=== PATIENT | female | born 1955 | race Caucasian/White ===

== ENCOUNTER 2021-11-30 16:16 | Inpatient (IN) | payer MEDICARE ==
[~2021-11-30] VITALS: Ht 160 cm; Wt 98.0 kg
[2021-11-30 16:20] VITALS: BP 124/66
[2021-11-30 16:46] LABS: BASO # 0.1 10*3/uL (0.0-0.1); BASO % 0.4 % (0.0-1.0); EOS % 0.2 % (1.0-4.0); HEMATOCRIT 44.5 % (37.0-47.0); LYMPH # 0.9 10*3/uL (1.3-4.4); MEAN CELL VOLUME 90.3 fl (81.0-99.0); MEAN CORPUSCULAR HGB 31.8 pg (27.0-31.0); MEAN CORPUSCULAR HGB CONC 35.3 g/dl (33.0-37.0); MEAN PLATELET VOLUME 9.7 fl (9.6-12.3); MONO # 1.2 10*3/uL (0.1-1.0); MONO % 8.2 % (3.0-9.0); NEUT % 84.6 % (47.0-73.0); PLATELET COUNT AUTOMATED 127 10*3/uL (130-400); RED BLOOD COUNT 4.93 10*6/uL (4.10-5.10); RED CELL DISTRI WIDTH 15.7 % (0-14.5); WHITE BLOOD COUNT 14.2 10*3/uL (4.8-10.8)
[2021-11-30 17:01] LABS: ACT PARTIAL THROMBO TIME 32.6 SECONDS (20.0-32.1); ALKALINE PHOSPHATASE 757 U/L (45-117); BUN 13 mg/dl (7-24); CHLORIDE 88 mmol/L (98-107); CREATININE 0.56 mg/dL (0.55-1.02); INTERNATIONAL NORM RATIO 1.3 (2.0-3.5); SGOT/AST 303 IU/L (3-35); SGPT/ALT 168 U/L (12-78); SODIUM 123 mmol/L (136-145); TOTAL PROTEIN 6.6 gm/dL (6.4-8.2)
[2021-11-30 17:29] LABS: BILIRUBIN 3+ (Negative); BLOOD Negative (Negative); CLARITY Cloudy (Clear); COLOR Dark Yellow (Yellow); GLUCOSE Negative (Negative); KETONE Trace (Negative); LEUKO ESTERASE 1+ (Negative); NITRITE Positive (Negative); PH 5.5 (4.5-8.0); SPECIFIC GRAVITY 1.025 (1.001-1.030)
[2021-11-30 17:45] LABS: RBC 0-2 rbc/hpf (0-2)
[2021-11-30 17:46] LABS: BACTERIA 3+; EPITHELIAL CELLS TNTC
[2021-11-30 18:04] VITALS: BP 127/63
[2021-11-30 19:00] VITALS: BP 127/49
[2021-11-30 19:30] VITALS: BP 143/80
[2021-11-30 22:36] VITALS: BP 126/68
[2021-12-01] VITALS: BP 108/62
[2021-12-01] MEDS ORDERED: METFORMIN HYDR750 MG PO (01:00)
[2021-12-01] MEDS ORDERED: ATORVASTATIN CA40 M1 PO (01:00)
[2021-12-01 06:06] LABS: CHLORIDE 93 mmol/L (98-107); POTASSIUM 3.8 mmol/L (3.5-5.1); SODIUM 128 mmol/L (136-145)
[2021-12-01 06:12] LABS: BASO % 0.3 % (0.0-1.0); EOS % 0.3 % (1.0-4.0); LYMPH # 0.8 10*3/uL (1.3-4.4); LYMPH % 7.1 % (27.0-41.0); MEAN CELL VOLUME 91.5 fl (81.0-99.0); MEAN PLATELET VOLUME 10.6 fl (9.6-12.3); MONO # 0.9 10*3/uL (0.1-1.0); MONO % 8.3 % (3.0-9.0); NEUT # 9.5 10*3/uL (2.3-7.9); NEUT % 83.4 % (47.0-73.0); PLATELET COUNT AUTOMATED 117 10*3/uL (130-400); RED BLOOD COUNT 4.59 10*6/uL (4.10-5.10); RED CELL DISTRI WIDTH 16.4 % (0-14.5); WHITE BLOOD COUNT 11.4 10*3/uL (4.8-10.8)
[2021-12-01 06:24] LABS: ALKALINE PHOSPHATASE 702 U/L (45-117); BUN 13 mg/dl (7-24); CHOLESTEROL 182 mg/dL (<200); CREATININE 0.55 mg/dL (0.55-1.02); LDL CHOLESTEROL 148 mg/dL (9-159); SGOT/AST 279 IU/L (3-35); SGPT/ALT 148 U/L (12-78); TOTAL PROTEIN 5.9 gm/dL (6.4-8.2); TRIGLYCERIDES 131 mg/dl (<150)
[2021-12-01 07:32] VITALS: BP 147/71
[2021-12-01 09:57] LABS: VITAMIN D, 25-HYDROXY 17.3 ng/mL (30-100)
[2021-12-01 12:00] VITALS: BP 142/64
[2021-12-01 16:00] VITALS: BP 137/72
[2021-12-01 20:00] VITALS: BP 119/62
[2021-12-02] VITALS: BP 115/67
[2021-12-02 04:00] VITALS: BP 139/60
[2021-12-02 05:30] LABS: ALKALINE PHOSPHATASE 671 U/L (45-117); BUN 12 mg/dl (7-24); CHLORIDE 98 mmol/L (98-107); CREATININE 0.47 mg/dL (0.55-1.02); POTASSIUM 4.2 mmol/L (3.5-5.1); SGOT/AST 289 IU/L (3-35); SGPT/ALT 155 U/L (12-78); SODIUM 132 mmol/L (136-145)
[2021-12-02 06:11] LABS: BASO % 0.2 % (0.0-1.0); EOS % 0.3 % (1.0-4.0); HEMATOCRIT 41.6 % (37.0-47.0); LYMPH # 1.3 10*3/uL (1.3-4.4); LYMPH % 10.1 % (27.0-41.0); MEAN CELL VOLUME 92.4 fl (81.0-99.0); MEAN CORPUSCULAR HGB 32.4 pg (27.0-31.0); MEAN CORPUSCULAR HGB CONC 35.1 g/dl (33.0-37.0); MEAN PLATELET VOLUME 10.8 fl (9.6-12.3); MONO # 1.2 10*3/uL (0.1-1.0); MONO % 9.5 % (3.0-9.0); NEUT # 9.8 10*3/uL (2.3-7.9); NEUT % 79.3 % (47.0-73.0); PLATELET COUNT AUTOMATED 112 10*3/uL (130-400); WHITE BLOOD COUNT 12.3 10*3/uL (4.8-10.8)
[2021-12-02 08:00] VITALS: BP 125/59
[2021-12-02 16:00] VITALS: BP 134/68
[2021-12-02 20:00] VITALS: BP 115/59
[2021-12-03] VITALS: BP 123/53
[2021-12-03 04:00] VITALS: BP 119/47
[2021-12-03 05:16] LABS: BUN 13 mg/dl (7-24); CHLORIDE 97 mmol/L (98-107); POTASSIUM 4.4 mmol/L (3.5-5.1); SGOT/AST 294 IU/L (3-35); SGPT/ALT 154 U/L (12-78); SODIUM 131 mmol/L (136-145)
[2021-12-03 05:19] LABS: ALKALINE PHOSPHATASE 656 U/L (45-117); CREATININE 0.49 mg/dL (0.55-1.02); TOTAL PROTEIN 5.9 gm/dL (6.4-8.2)
[2021-12-03 05:27] LABS: THYROID STIM HORMONE (HS) 0.664 uIU/ml (0.358-4.75)
[2021-12-03 06:29] LABS: BASO % 0.3 % (0.0-1.0); EOS % 0.3 % (1.0-4.0); HEMATOCRIT 40.5 % (37.0-47.0); LYMPH % 8.7 % (27.0-41.0); MEAN CELL VOLUME 92.3 fl (81.0-99.0); MEAN CORPUSCULAR HGB 32.1 pg (27.0-31.0); MEAN CORPUSCULAR HGB CONC 34.8 g/dl (33.0-37.0); MEAN PLATELET VOLUME 10.8 fl (9.6-12.3); MONO # 1.2 10*3/uL (0.1-1.0); NEUT # 9.3 10*3/uL (2.3-7.9); NEUT % 79.9 % (47.0-73.0); PLATELET COUNT AUTOMATED 98 10*3/uL (130-400); RED BLOOD COUNT 4.39 10*6/uL (4.10-5.10); RED CELL DISTRI WIDTH 17.4 % (0-14.5); WHITE BLOOD COUNT 11.6 10*3/uL (4.8-10.8)
[2021-12-03 08:00] VITALS: BP 128/63
[2021-12-03 12:00] VITALS: BP 100/60
[2021-12-03 16:00] VITALS: BP 118/54
[2021-12-03 19:54] LABS: BUN 13 mg/dl (7-24); CHLORIDE 99 mmol/L (98-107); CREATININE 0.65 mg/dL (0.55-1.02); POTASSIUM 5.3 mmol/L (3.5-5.1); SODIUM 132 mmol/L (136-145)
[2021-12-03 20:00] VITALS: BP 129/68
[2021-12-04] VITALS: BP 136/80
[2021-12-04 06:12] LABS: ALKALINE PHOSPHATASE 736 U/L (45-117); BUN 16 mg/dl (7-24); CHLORIDE 97 mmol/L (98-107); CREATININE 0.69 mg/dL (0.55-1.02); POTASSIUM 5.3 mmol/L (3.5-5.1); SGOT/AST 325 IU/L (3-35); SGPT/ALT 166 U/L (12-78); SODIUM 130 mmol/L (136-145); TOTAL PROTEIN 6.2 gm/dL (6.4-8.2)
[2021-12-04 06:14] LABS: BASO % 0.3 % (0.0-1.0); EOS # 0.1 10*3/uL (0.0-0.4); EOS % 0.4 % (1.0-4.0); HEMATOCRIT 42.7 % (37.0-47.0); LYMPH # 1.1 10*3/uL (1.3-4.4); LYMPH % 7.8 % (27.0-41.0); MEAN CELL VOLUME 92.2 fl (81.0-99.0); MEAN CORPUSCULAR HGB CONC 34.7 g/dl (33.0-37.0); MEAN PLATELET VOLUME 10.8 fl (9.6-12.3); MONO # 1.4 10*3/uL (0.1-1.0); MONO % 9.8 % (3.0-9.0); NEUT # 11.5 10*3/uL (2.3-7.9); NEUT % 80.6 % (47.0-73.0); PLATELET COUNT AUTOMATED 88 10*3/uL (130-400); RED BLOOD COUNT 4.63 10*6/uL (4.10-5.10); RED CELL DISTRI WIDTH 18.5 % (0-14.5); WHITE BLOOD COUNT 14.2 10*3/uL (4.8-10.8)
[2021-12-04 08:00] VITALS: BP 132/78
[2021-12-04 12:00] VITALS: BP 141/72
[2021-12-04 12:01] LABS: INTERNATIONAL NORM RATIO 1.8 (2.0-3.5)
[2021-12-04 16:00] VITALS: BP 128/84
[2021-12-04 20:00] VITALS: BP 130/75
[2021-12-05] VITALS (12 sets, daily range): BP systolic 119–140; BP diastolic 60–96
[2021-12-05 06:17] LABS: INTERNATIONAL NORM RATIO 1.8 (2.0-3.5)
[2021-12-05 06:20] LABS: BASO % 0.1 % (0.0-1.0); EOS % 0.3 % (1.0-4.0); HEMATOCRIT 43.1 % (37.0-47.0); LYMPH % 7.2 % (27.0-41.0); MEAN CELL VOLUME 92.5 fl (81.0-99.0); MEAN CORPUSCULAR HGB 31.8 pg (27.0-31.0); MEAN CORPUSCULAR HGB CONC 34.3 g/dl (33.0-37.0); MEAN PLATELET VOLUME 10.5 fl (9.6-12.3); MONO # 1.3 10*3/uL (0.1-1.0); MONO % 8.8 % (3.0-9.0); NEUT # 11.7 10*3/uL (2.3-7.9); NEUT % 82.7 % (47.0-73.0); PLATELET COUNT AUTOMATED 84 10*3/uL (130-400); RED BLOOD COUNT 4.66 10*6/uL (4.10-5.10); RED CELL DISTRI WIDTH 18.7 % (0-14.5); WHITE BLOOD COUNT 14.2 10*3/uL (4.8-10.8)
[2021-12-05 06:22] LABS: ALKALINE PHOSPHATASE 731 U/L (45-117); BUN 16 mg/dl (7-24); CHLORIDE 96 mmol/L (98-107); CREATININE 0.82 mg/dL (0.55-1.02); POTASSIUM 4.9 mmol/L (3.5-5.1); SGOT/AST 315 IU/L (3-35); SGPT/ALT 164 U/L (12-78); SODIUM 131 mmol/L (136-145); TOTAL PROTEIN 6.1 gm/dL (6.4-8.2)
[2021-12-05 16:00] LABS: INTERNATIONAL NORM RATIO 1.5 (2.0-3.5)
[2021-12-06] VITALS (10 sets, daily range): BP systolic 114–143; BP diastolic 50–87
[2021-12-06 06:48] LABS: ALKALINE PHOSPHATASE 556 U/L (45-117); BASO % 0.2 % (0.0-1.0); BUN 15 mg/dl (7-24); CHLORIDE 95 mmol/L (98-107); EOS # 0.1 10*3/uL (0.0-0.4); EOS % 0.8 % (1.0-4.0); LYMPH # 0.7 10*3/uL (1.3-4.4); LYMPH % 6.5 % (27.0-41.0); MEAN CELL VOLUME 92.8 fl (81.0-99.0); MEAN CORPUSCULAR HGB 31.8 pg (27.0-31.0); MEAN CORPUSCULAR HGB CONC 34.3 g/dl (33.0-37.0); MEAN PLATELET VOLUME 11.1 fl (9.6-12.3); MONO % 9.3 % (3.0-9.0); NEUT # 8.7 10*3/uL (2.3-7.9); POTASSIUM 4.9 mmol/L (3.5-5.1); RED BLOOD COUNT 3.77 10*6/uL (4.10-5.10); RED CELL DISTRI WIDTH 18.4 % (0-14.5); SGOT/AST 238 IU/L (3-35); SGPT/ALT 121 U/L (12-78); SODIUM 131 mmol/L (136-145); TOTAL PROTEIN 6.3 gm/dL (6.4-8.2); WHITE BLOOD COUNT 10.6 10*3/uL (4.8-10.8)
[2021-12-06 06:50] LABS: PLATELET COUNT AUTOMATED 57 10*3/uL (130-400)
[2021-12-06 07:55] LABS: ACT PARTIAL THROMBO TIME 37.2 SECONDS (20.0-32.1); INTERNATIONAL NORM RATIO 1.5 (2.0-3.5)
[2021-12-07] VITALS: BP 134/67
[2021-12-07 06:08] LABS: BASO % 0.2 % (0.0-1.0); EOS # 0.1 10*3/uL (0.0-0.4); EOS % 0.6 % (1.0-4.0); HEMATOCRIT 37.1 % (37.0-47.0); LYMPH # 0.7 10*3/uL (1.3-4.4); LYMPH % 5.9 % (27.0-41.0); MEAN CELL VOLUME 91.2 fl (81.0-99.0); MEAN CORPUSCULAR HGB 31.7 pg (27.0-31.0); MEAN CORPUSCULAR HGB CONC 34.8 g/dl (33.0-37.0); MEAN PLATELET VOLUME 10.3 fl (9.6-12.3); MONO # 1.1 10*3/uL (0.1-1.0); MONO % 8.8 % (3.0-9.0); NEUT # 10.4 10*3/uL (2.3-7.9); NEUT % 83.2 % (47.0-73.0); PLATELET COUNT AUTOMATED 58 10*3/uL (130-400); RED BLOOD COUNT 4.07 10*6/uL (4.10-5.10); RED CELL DISTRI WIDTH 18.9 % (0-14.5); WHITE BLOOD COUNT 12.5 10*3/uL (4.8-10.8)
[2021-12-07 06:13] LABS: ALKALINE PHOSPHATASE 580 U/L (45-117); BUN 15 mg/dl (7-24); CHLORIDE 96 mmol/L (98-107); CREATININE 0.63 mg/dL (0.55-1.02); POTASSIUM 4.8 mmol/L (3.5-5.1); SGOT/AST 233 IU/L (3-35); SGPT/ALT 119 U/L (12-78); SODIUM 131 mmol/L (136-145)
[2021-12-07 08:00] VITALS: BP 128/67
[2021-12-07 12:00] VITALS: BP 131/63
[2021-12-07 16:00] VITALS: BP 140/74
[2021-12-07 20:00] VITALS: BP 114/65
[2021-12-08] VITALS: BP 129/78
[2021-12-08 06:17] LABS: BASO # 0.1 10*3/uL (0.0-0.1); BASO % 0.4 % (0.0-1.0); EOS # 0.1 10*3/uL (0.0-0.4); EOS % 0.8 % (1.0-4.0); HEMATOCRIT 40.1 % (37.0-47.0); LYMPH # 0.8 10*3/uL (1.3-4.4); LYMPH % 5.7 % (27.0-41.0); MEAN CELL VOLUME 93.3 fl (81.0-99.0); MEAN CORPUSCULAR HGB 31.6 pg (27.0-31.0); MEAN CORPUSCULAR HGB CONC 33.9 g/dl (33.0-37.0); MEAN PLATELET VOLUME 10.6 fl (9.6-12.3); MONO % 7.4 % (3.0-9.0); NEUT # 11.7 10*3/uL (2.3-7.9); NEUT % 83.8 % (47.0-73.0); PLATELET COUNT AUTOMATED 67 10*3/uL (130-400); RED CELL DISTRI WIDTH 20.1 % (0-14.5)
[2021-12-08 06:22] LABS: ALKALINE PHOSPHATASE 638 U/L (45-117); BUN 19 mg/dl (7-24); CHLORIDE 96 mmol/L (98-107); CREATININE 1.02 mg/dL (0.55-1.02); SGOT/AST 258 IU/L (3-35); SGPT/ALT 126 U/L (12-78); SODIUM 132 mmol/L (136-145); TOTAL PROTEIN 6.2 gm/dL (6.4-8.2)
[2021-12-08 08:00] VITALS: BP 119/94
[2021-12-08 12:00] VITALS: BP 115/63
[2021-12-08 16:00] VITALS: BP 111/55
[2021-12-08 20:00] VITALS: BP 116/59
[2021-12-09] VITALS: BP 126/70
[2021-12-09 06:44] LABS: MEAN CORPUSCULAR HGB 31.7 pg (27.0-31.0); MEAN CORPUSCULAR HGB CONC 34.5 g/dl (33.0-37.0); MEAN PLATELET VOLUME 9.8 fl (9.6-12.3); NUCLEATED RED BLOOD CELL 0.2 % (0.0-0.0); PLATELET COUNT AUTOMATED 85 10*3/uL (130-400); RED BLOOD COUNT 4.35 10*6/uL (4.10-5.10); RED CELL DISTRI WIDTH 20.8 % (0-14.5); WHITE BLOOD COUNT 19.9 10*3/uL (4.8-10.8)
[2021-12-09 06:58] LABS: MANUAL DIFF REFLEX YES
[2021-12-09 06:59] LABS: CREATININE 1.12 mg/dL (0.55-1.02); POTASSIUM 5.2 mmol/L (3.5-5.1)
[2021-12-09 07:16] LABS: PLATELET SUFFICIENCY LOW (NORMAL); POLYCHROMASIA SLIGHT; TARGET CELLS FEW; TOTAL CELLS COUNTED 100 #CELLS; TOXIC GRANULATION SLIGHT; VACUOLATION OF NEUTROPHILS SLIGHT
[2021-12-09 08:00] VITALS: BP 119/64
[2021-12-09 12:00] VITALS: BP 100/52
[2021-12-09 16:00] VITALS: BP 116/60
[2021-12-09 20:00] VITALS: BP 115/72
[2021-12-10] VITALS: BP 104/58
[2021-12-10 06:09] LABS: CREATININE 2.04 mg/dL (0.55-1.02); TOTAL PROTEIN 5.7 gm/dL (6.4-8.2)
[2021-12-10 06:23] LABS: POTASSIUM 6.8 mmol/L (3.5-5.1)
[2021-12-10 06:38] LABS: HEMATOCRIT 40.6 % (37.0-47.0); MEAN CELL VOLUME 92.5 fl (81.0-99.0); MEAN CORPUSCULAR HGB 31.9 pg (27.0-31.0); MEAN CORPUSCULAR HGB CONC 34.5 g/dl (33.0-37.0); MEAN PLATELET VOLUME 11.5 fl (9.6-12.3); NUCLEATED RED BLOOD CELL 0.1 10*3/uL (0.0-0.0); NUCLEATED RED BLOOD CELL 0.4 % (0.0-0.0); PLATELET COUNT AUTOMATED 103 10*3/uL (130-400); RED BLOOD COUNT 4.39 10*6/uL (4.10-5.10); RED CELL DISTRI WIDTH 21.9 % (0-14.5); WHITE BLOOD COUNT 19.2 10*3/uL (4.8-10.8)
[2021-12-10 06:54] LABS: MANUAL DIFF REFLEX YES
[2021-12-10 07:01] LABS: CREATININE 2.05 mg/dL (0.55-1.02); TOTAL PROTEIN 5.6 gm/dL (6.4-8.2)
[2021-12-10 07:06] LABS: POTASSIUM 7.8 mmol/L (3.5-5.1)
[2021-12-10 07:44] LABS: TOTAL CELLS COUNTED 100 #CELLS
[2021-12-10 07:45] LABS: BURR CELLS FEW; PLATELET SUFFICIENCY LOW (NORMAL); POLYCHROMASIA SLIGHT; TARGET CELLS FEW; VACUOLATION OF NEUTROPHILS SLIGHT
[2021-12-10 08:00] VITALS: BP 96/44
[2021-12-10 09:10] LABS: INTERNATIONAL NORM RATIO 5.1 (2.0-3.5)
[2021-12-10 12:00] VITALS: BP 64/50
[2021-12-10 12:20] VITALS: BP 64/50
[2021-12-10 12:52] LABS: CREATININE 2.51 mg/dL (0.55-1.02)
[2021-12-10 12:57] LABS: POTASSIUM 6.8 mmol/L (3.5-5.1)
== END 2021-12-10 13:09 | DRG 871 ==
LOC: ED 16:16 → 5E 21:58 → EDHOLD 21:58 → ICCU 21:58 → 5E 23:41 → ICCU 12-01 07:32 → 5E 12-03 19:49
PROVIDERS: Emergency Medicine; Hospitalist; Internal Medicine; Internal Medicine Nephrology; Student in an Organized Health Care Education/Training Program; ADMIT Emergency Medicine; ATTEND Emergency Medicine
PROC: 30233K1 Transfusion of Nonautologous Frozen Plasma into Peripheral Vein, Percutaneous Approach (ICD-10-PCS; principal; 2021-12-05)
DX: A41.9 Sepsis, unspecified organism (principal); E43 Unspecified severe protein-calorie malnutrition; K65.2 Spontaneous bacterial peritonitis; J96.00 Acute respiratory failure, unspecified whether with hypoxia or hypercapnia; E87.2 Acidosis; C34.90 Malignant neoplasm of unspecified part of unspecified bronchus or lung; N17.9 Acute kidney failure, unspecified; D68.9 Coagulation defect, unspecified; E22.2 Syndrome of inappropriate secretion of antidiuretic hormone; R18.8 Other ascites; N30.00 Acute cystitis without hematuria; Z66 Do not resuscitate; E87.5 Hyperkalemia; E83.39 Other disorders of phosphorus metabolism; Z51.5 Encounter for palliative care; R65.20 Severe sepsis without septic shock; K72.90 Hepatic failure, unspecified without coma; E66.01 Morbid (severe) obesity due to excess calories; Z68.38 Body mass index [BMI] 38.0-38.9, adult; E78.5 Hyperlipidemia, unspecified; E87.8 Other disorders of electrolyte and fluid balance, not elsewhere classified; E11.65 Type 2 diabetes mellitus with hyperglycemia; E80.6 Other disorders of bilirubin metabolism; D64.9 Anemia, unspecified; Z20.822 Contact with and (suspected) exposure to COVID-19; D69.6 Thrombocytopenia, unspecified; Z88.0 Allergy status to penicillin; Z87.891 Personal history of nicotine dependence; Z91.013 Allergy to seafood; Z79.899 Other long term (current) drug therapy; Z80.0 Family history of malignant neoplasm of digestive organs